=== PATIENT | male | born 1985 | race Asian ===

== ENCOUNTER 2016-12-14 12:38 | Day surgery (SDC) | payer BC, OTHER ==
[~2016-12-14] VITALS: Ht 170.2 cm; Wt 70.7 kg
[~2016-12-14 12:38] MED LIST: BUPIVACAINE/PF 0.25% ONE; EPINEPHRINE 1 MG/ML, 1ML ONE; FOCUS FACTOR PO; HYDR-3237 PO; NAPR220C2 PO
[2016-12-14 13:06] VITALS: BP 125/82
[2016-12-14] MEDS ORDERED: LIDOCAINE 1%, 2ML ONE (13:08)
[2016-12-14] MEDS ORDERED: LACTATED RINGERS 1,000 ML IV SCH (13:09)
[2016-12-14] MEDS ORDERED: LIDOCAINE 1%, 2ML SQ PRN (13:30)
[2016-12-14] MEDS ORDERED: ONDANSETRON 2MG/ML, 2ML ONE ×2 (13:32→15:26)
[2016-12-14] MEDS ORDERED: PROPOFOL 10 MG/ML, 20ML ONE (13:32)
[2016-12-14] MEDS ORDERED: FENTANYL PF 100 MCG/2ML ONE ×3 (13:32→15:27)
[2016-12-14] MEDS ORDERED: CEFAZOLIN 1,000 MG ONE (13:32)
[2016-12-14] MEDS ORDERED: DEXAMETHASONE 4 MG/ML, 1ML ONE (13:32)
[2016-12-14] MEDS ORDERED: METOCLOPRAMIDE 5 MG/ML, 2ML ONE (13:32)
[2016-12-14] MEDS ORDERED: ACETAMINOPHEN 325 MG TABLET PO PRN (14:00)
[2016-12-14] MEDS ORDERED: OXYcodone 5 MG/5 ML ORAL.SOL UDC PO PRN (14:00)
[2016-12-14] MEDS ORDERED: hydrALAzine 20 MG/ML, 1ML IV PRN (14:00)
[2016-12-14] MEDS ORDERED: ONDANSETRON 2MG/ML, 2ML IVPush PRN (14:00)
[2016-12-14] MEDS ORDERED: MIDAZOLAM 1 MG/ML, 2ML IV PRN (14:00)
[2016-12-14] MEDS ORDERED: MEPERIDINE/PF 25MG/0.5ML IVPush PRN (14:00)
[2016-12-14] MEDS ORDERED: LABETALOL 5MG/ML, 20ML IV PRN (14:00)
[2016-12-14] MEDS ORDERED: PROMETHAZINE 25 MG/ML, 1ML IV PRN (14:00)
[2016-12-14] MEDS ORDERED: OXYcodone 5 MG/5 ML ORAL.SOL UDC ONE (15:26)
[2016-12-14] MEDS ORDERED: ACETAMINOPHEN 650 MG/20.3 ML UDC ONE (15:27)
[2016-12-14] MEDS: FENTANYL PF 100 MCG/2ML IV PRN ×2 (15:34→15:45)
[2016-12-14] MEDS ORDERED: HYDROmorphone 2 MG/ML, 1ML ONE ×2 (15:47→16:46)
[2016-12-14] MEDS: HYDROmorphone 1 MG/ML, 1ML IV PRN ×5 (15:49→16:47)
== END 2016-12-14 18:57 | disposition home or self-care (01) ==
LOC: OUT 12:38
PROVIDERS: ATTEND Orthopaedic Surgery
DX: S82.111A Displaced fracture of right tibial spine, initial encounter for closed fracture (principal); M23.341 Other meniscus derangements, anterior horn of lateral meniscus, right knee; Y93.66 Activity, soccer; Y93.89 Activity, other specified; Y92.89 Other specified places as the place of occurrence of the external cause; Y99.8 Other external cause status
CPT/HCPCS: 27403; 27407; 29855; C1713; J0171; J0690; J1100; J1170; J2405; J2704; J2765; J3010; J3490; J7120

== ENCOUNTER 2017-12-13 06:14 | Day surgery (SDC) | payer OTHER ==
[~2017-12-13] VITALS: Ht 170.2 cm; Wt 76.8 kg
[~2017-12-13 06:14] MED LIST changes: -BUPIVACAINE/PF 0.25% ONE; -EPINEPHRINE 1 MG/ML, 1ML ONE; +LIDOCAINE 1%-EPI 1:100K, 30ML ONE; +ROPIvacaine/PF 0.5%, 30 ML ONE
[2017-12-13 06:55] VITALS: BP 142/91
[2017-12-13] MEDS ORDERED: NONE PER PT (07:01)
[2017-12-13] MEDS ORDERED: LACTATED RINGERS 1,000 ML IV SCH (07:02)
[2017-12-13] MEDS ORDERED: PROPOFOL 50 ML ONE (07:29)
[2017-12-13] MEDS ORDERED: MIDAZOLAM 1 MG/ML, 2ML ONE (07:29)
[2017-12-13] MEDS ORDERED: ACETAMINOPHEN 500 MG TABLET PO ONE (07:30)
[2017-12-13] MEDS ORDERED: OxyconTIN ER 20 MG TAB.ER PO ONE (07:30)
[2017-12-13] MEDS ORDERED: ONDANSETRON ODT 8 MG PO ONE (07:30)
[2017-12-13] MEDS ORDERED: FENTANYL PF 250 MCG/5ML ONE (07:30)
[2017-12-13] MEDS ORDERED: GABAPENTIN 300 MG CAPSULE PO ONE (07:30)
[2017-12-13] MEDS ORDERED: CEFAZOLIN 1,000 MG ONE (08:22)
[2017-12-13] MEDS ORDERED: DEXAMETHASONE 4 MG/ML, 1ML ONE (08:22)
[2017-12-13] MEDS ORDERED: PROMETHAZINE 12.5 MG SUPP PR PRN (08:30)
[2017-12-13] MEDS ORDERED: EPHEDRINE 50 MG/ML, 1ML IM PRN (08:30)
[2017-12-13] MEDS ORDERED: PROMETHAZINE 25 MG SUPP PR PRN (08:30)
[2017-12-13] MEDS ORDERED: DIPHENHYDRAMINE 50 MG/ML, 1ML IVPush PRN (08:30)
[2017-12-13] MEDS ORDERED: MORPHINE SULFATE 4 MG/ML, 1ML IVPush PRN (08:30)
[2017-12-13] MEDS ORDERED: MEPERIDINE/PF 25MG/0.5ML IVPush PRN (08:30)
[2017-12-13] MEDS ORDERED: ONDANSETRON ODT 8 MG PO PRN (08:30)
[2017-12-13] MEDS ORDERED: PROMETHAZINE 25 MG/ML, 1ML IV PRN (08:30)
[2017-12-13] MEDS ORDERED: FENTANYL PF 100 MCG/2ML IV PRN (08:30)
[2017-12-13] MEDS ORDERED: OXYcodone 5 MG/5 ML ORAL.SOL UDC PO PRN (08:30)
[2017-12-13] MEDS ORDERED: MIDAZOLAM 1 MG/ML, 2ML IV PRN (08:30)
== END 2017-12-13 11:00 | disposition home or self-care (01) ==
LOC: OUT 06:14
PROVIDERS: ATTEND Orthopaedic Surgery
DX: T84.84XA Pain due to internal orthopedic prosthetic devices, implants and grafts, initial encounter (principal); S83.281A Other tear of lateral meniscus, current injury, right knee, initial encounter; M65.861 Other synovitis and tenosynovitis, right lower leg; Z86.19 Personal history of other infectious and parasitic diseases; Z87.891 Personal history of nicotine dependence; Z72.89 Other problems related to lifestyle; G89.18 Other acute postprocedural pain; Y83.1 Surgical operation with implant of artificial internal device as the cause of abnormal reaction of the patient, or of later complication, without mention of misadventure at the time of the procedure; Y92.89 Other specified places as the place of occurrence of the external cause; X58.XXXA Exposure to other specified factors, initial encounter; Y93.89 Activity, other specified; Y99.8 Other external cause status; Z98.890 Other specified postprocedural states
CPT/HCPCS: 20680; 29881; J0690; J1100; J2250; J2704; J2795; J3010; J3490; J7120; Q0162